=== PATIENT | male | born 1975 | race Two or more races ===

== ENCOUNTER 2024-11-01 12:10 | Emergency (ER) | payer OTHER ==
[~2024-11-01] VITALS: Ht 177.8 cm; Wt 87.1 kg
[2024-11-01] MEDS ORDERED: LANTUS SOL100 UNIT/1 (13:32)
[2024-11-01] MEDS ORDERED: KATERZIA1 MG/1 ML (13:32)
[2024-11-01 13:33] VITALS: BP 190/90; O2SAT 99
[2024-11-01] MEDS ORDERED: ONDANSETRON HCL 2 MG/ML VIAL IV ONE (14:30)
[2024-11-01] MEDS ORDERED: FAMOTIDINE/PF 20 MG/2 ML VIAL IV PUSH ONE (14:30)
[2024-11-01] MEDS ORDERED: 0.9 % SODIUM CHLORIDE 1,000 ML IV SCH (14:30)
[2024-11-01] MEDS ORDERED: INSULIN REGULAR, HUMAN 1,000 UNIT/10 ML UNITS IV NR (15:00)
[2024-11-01] MEDS ORDERED: ONDANSETRON HCL 2 MG/ML VIAL ONE (15:32)
[2024-11-01] MEDS ORDERED: FAMOTIDINE/PF 20 MG/2 ML VIAL ONE (15:34)
[2024-11-01 16:23] LABS: BASO % 0.4 % (0.1-1.2); EOS # 0.00 (0.04-0.54); EOS % 0.0 % (0.7-7.0); LYMPH # 0.66 (1.18-3.74); LYMPH % 14.0 % (19.3-53.1); MEAN PLATELET VOLUME 9.30 fl (9.4-12.4); MONO # 0.06 (0.24-0.82); MONO % 1.3 % (4.7-12.5); NEUT # 3.97 (1.56-6.13); NEUT % 84.1 % (34.0-71.1); RED CELL DISTRIBUTION WIDTH 13.7 % (11.6-14.4)
[2024-11-01 16:53] LABS: ALT/SGPT 63.0 U/L (12-78); AST/SGOT 162.0 U/L (15-37); BILIRUBIN TOTAL 0.52 mg/dL (0.3-1.2); BUN CREA RATIO 7.0 (7.0-25.0); CREATININE SERUM 1.63 mg/dL (0.70-1.30); GFR 45.01; GLOBULINA 3.5 G/DL (2.4-3.5); OSMOLALITY SERUM 297.0 MOSM/KG (275-295)
[2024-11-01 17:21] LABS: GLUCOSE FASTING 419.0 mg/dL (65-100)
[2024-11-01 18:58] LABS: ABG PH 7.386 (7.35-7.45)
[2024-11-01 18:59] LABS: ABG PO2 87.5 mmHg (80-100); BICARBONATE 17.6 mmol/l (23-25); o2 21 %
== END 2024-11-01 20:47 | disposition home or self-care (01) ==
LOC: ER 12:10
PROVIDERS: Emergency Medicine
DX: R73.9 Hyperglycemia, unspecified (principal); R11.10 Vomiting, unspecified